=== PATIENT | female | born 1930 | race Caucasian/White ===

== ENCOUNTER → 2017-07-05 | Outpatient (CLI) | payer MEDICARE ==
--- NOTE | 2017-07-05 16:05 | 2DMMODE ---
[place] [address] 2 D/M-MODE ECHOCARDIOGRAM Name: JACINTA ALCALA Aj Room: [facility]#: [id number] Admission: 07/05/17 Attend Phys: Keyon Burdick, Discharge: Date of : [birth year] Date of Service: 07/05/17 1604 Report #: [id number] THIS REPORT FOR: //name// APPROVED REPORT Study performed: 07/05/2017 14:53:47 EXAM: Limited 2D Echocardiogram Patient Location: Out-Patient Status: routine BSA: 1.59 HR: 69 bpm BP: 128/78 mmHg Other Information Study Quality: Good Indications Congestive Heart Failure Peripheral Edema 2D Dimensions LVEF(%): 52.06 (>50%) IVSd: 12.77 (7-11mm) LVOT Diam: 19.15 (18-24mm) LVDd: 36.58 mm PWd: 10.87 (7-11mm) LVDs: 27.04 (25-40mm) Aortic Root: 22.03 mm Tamayo's LVEF: 52.06 % Aortic Valve AoV Peak Minesh.: 2.96 m/s AO Peak Gr.: 34.99 mmHg LVOT Max P.81 mmHg AO Mean Gr.: 21.40 mmHg LVOT Mean P.92 mmHg LVOT Max V: 0.98 m/s AO V2 VTI: 63.14 cm LVOT Mean V: 0.64 m/s ERIN (VTI): 1.06 cm2 LVOT V1 VTI: 23.18 cm Left Ventricle Left ventricle is grossly normal size. There is normal LV segmental wall motion. Mild concentric left ventricular hypertrophy. The left ventricular systolic function is normal. LVEF is 55-60%. This study is not technically sufficient to allow evaluation of the [place] [address] 2 D/M-MODE ECHOCARDIOGRAM Name: JACINTA ALCALA Room: [facility]#: [id number] Admission: 07/05/17 Attend Phys: Keyon Burdick, Discharge: Date of : [birth year] Date of Service: 07/05/17 1604 Report #: [id number] Right Ventricle The right ventricle is normal size. The right ventricular systolic function is normal. Atria Left atrium is mildly dilated. The right atrium size is normal. Aortic Valve Aortic valve is mildly calcified. No aortic regurgitation is present. Moderate aortic stenosis. Mitral Valve There is mitral annular calcification. There is no mitral valve regurgitation noted. Tricuspid Valve The tricuspid valve is normal in structure. There is no tricuspid valve regurgitation noted. Pulmonic Valve Pulmonic valve is not well visualized. Great Vessels The aortic root is normal in size. IVC is not well visualized. <Conclusion> Left ventricle is grossly normal size. Mild concentric left ventricular hypertrophy. The left ventricular systolic function is normal. LVEF is 55-60%. This study is not technically sufficient to allow evaluation of the LV diastolic function. Left atrium is mildly dilated. Aortic valve is mildly calcified. Moderate aortic stenosis. <ELECTRONICALLY SIGNED> By: Darwin Shelley MD, FACC 07/05/17 1604 1604 1604 Darwin Shelley MD, FACC /INF
== END ==
LOC: M.ULTRA 13:26
DX: I50.43 Acute on chronic combined systolic (congestive) and diastolic (congestive) heart failure (principal); I35.0 Nonrheumatic aortic (valve) stenosis; M71.22 Synovial cyst of popliteal space [Baker], left knee; M71.21 Synovial cyst of popliteal space [Baker], right knee; M79.605 Pain in left leg; M79.604 Pain in right leg; M79.89 Other specified soft tissue disorders; R60.0 Localized edema; E11.8 Type 2 diabetes mellitus with unspecified complications; E03.8 Other specified hypothyroidism